=== PATIENT | male | born 2000 | race American Indian/Alaskan Native ===

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

== ENCOUNTER 2021-06-05 14:26 | Emergency (ER) | payer BC ==
--- NOTE | 2021-06-05 15:28 | Emergency Department Report ---
ED ENT HPI - General Stated complaint: SORE THROAT Time Seen by Provider: 06/05/21 15:24 Source: patient Mode of arrival: Ambulatory Limitations: No Limitations - History of Present Illness Initial comments: 21-year-old male presents to the ER today with complaints of sore throat. Patient states that his symptoms have been going on for 4 days. Patient states that he did get an outpatient COVID-19 test because he has been around a few family members who are positive for Covid. He states that the test was negative. His main symptom suggest a sore throat but denies any other symptoms. He reports no trismus or drooling, or difficulty breathing. Patient states that he is concerned that he may have strep as he had similar symptoms earlier this time. complaint: sore throat -: days(s) (4) - Related Data Previous Rx's Medication Instructions Recorded Last Taken Type oxyCODONE /ACETAMINOPHEN [Percocet 2 tab PO Q4HR PRN #20 tab 11/05/19 Unknown Rx 5/325] Amoxicillin [Trimox CAP] 500 mg PO Q12H #20 capsule 06/05/21 Unknown Rx dexAMETHasone [Decadron] 4 mg PO Q12H #10 tablet 06/05/21 Unknown Rx Allergies Allergy/AdvReac Type Severity Reaction Status Date / Time No Known Allergies Allergy Unverified 11/04/19 05:43 ED Dental HPI - General Stated complaint: SORE THROAT Time Seen by Provider: 06/05/21 15:24 - Related Data Previous Rx's Medication Instructions Recorded Last Taken Type oxyCODONE /ACETAMINOPHEN [Percocet 2 tab PO Q4HR PRN #20 tab 11/05/19 Unknown Rx 5/325] Amoxicillin [Trimox CAP] 500 mg PO Q12H #20 capsule 06/05/21 Unknown Rx dexAMETHasone [Decadron] 4 mg PO Q12H #10 tablet 06/05/21 Unknown Rx Allergies Allergy/AdvReac Type Severity Reaction Status Date / Time No Known Allergies Allergy Unverified 11/04/19 05:43 ED Review of Systems ROS: Stated complaint: SORE THROAT Other details as noted in HPI ED Past Medical Hx - Past Medical History Hx Hypertension: No Hx Congestive Heart Failure: No Hx Diabetes: No Hx Liver Disease: No Hx Renal Disease: No Hx Asthma: Yes (no medication at home) Hx COPD: No Hx HIV: No - Social History Smoking Status: Never Smoker - Medications Home Medications: Home Medications Medication Instructions Recorded Confirmed Last Taken Type oxyCODONE /ACETAMINOPHEN [Percocet 2 tab PO Q4HR PRN #20 tab 11/05/19 Unknown Rx 5/325] Amoxicillin [Trimox CAP] 500 mg PO Q12H #20 capsule 06/05/21 Unknown Rx dexAMETHasone [Decadron] 4 mg PO Q12H #10 tablet 06/05/21 Unknown Rx ED Course Vital Signs 06/05/21 15:24 Temperature 99.1 F Pulse Rate 70 Respiratory 18 Rate Blood Pressure 131/72 O2 Sat by Pulse 100 Oximetry Critical care attestation.: If time is entered above; I have spent that time in minutes in the direct care of this critically ill patient, excluding procedure time. ED Disposition Clinical Impression: Tonsillitis Disposition: HOME / SELF CARE / HOMELESS Is pt being admited?: No Does the pt Need Aspirin: No Condition: Stable Instructions: Tonsillitis, [id number] Additional Instructions: Recommend that you take the amoxicillin as prescribed. Take the Decadron and ibuprofen as prescribed to help with pain and any swelling. Follow-up with your PCP. Return to the ER if your symptoms worsens in any way. Prescriptions: dexAMETHasone [Decadron] 4 mg PO Q12H #10 tablet Amoxicillin [Trimox CAP] 500 mg PO Q12H #20 capsule Referrals: PRIMARY CARE, [Primary Care Provider] - 3-5 Days Forms: Work/School Release Form(ED) Time of Disposition: 16:04
[2021-06-05 16:40] VITALS: BP 143/80
== END 2021-06-05 16:45 | disposition home or self-care (01) ==
LOC: ED 14:26
DX: J03.90 Acute tonsillitis, unspecified (principal); J45.909 Unspecified asthma, uncomplicated
CPT/HCPCS: 87116; 87430; 99283

== ENCOUNTER 2021-06-09 06:08 | Emergency (ER) | payer BC ==
--- NOTE | 2021-06-09 09:28 | Emergency Department Report ---
ED Recheck HPI - General Chief Complaint: Sore Throat Stated Complaint: SORE THROAT Time Seen by Provider: 06/09/21 08:33 Source: patient Mode of arrival: Ambulatory Limitations: No Limitations - History of Present Illness Initial Comments: This is a 21-year-old male nontoxic, well nourished in appearance, no acute signs of distress presents to the ED for medication refill of Amox. Patient was /seen here on 06/05/21 and was DX with tonsillitis and was treatment with trimax. Patient stated he started to take this and yesterday his medication was lost. Patient patient otherwise denies any other symptoms or complaints. Stated taken 3 days worth of antibiotics. Currently patient stated sore throat has significantly improved. Patient denies any fever, chills, headache, stiff neck, nausea, vomiting, chest /pain, shortness of breath, numbness or tingling. Patient denies any drooling or hoarseness. Patient denies any allergies or significant past medical history. MD Complaint: medication refill request Returns Today for: request for prescription Symptoms Since Prior Visit: no new symptoms, improved Associated Symptoms: none. denies: fever, chills, chest pain, shortness of breath, rash, malaise, nasuea, abdominal pain - Related Data Previous Rx's Medication Instructions Recorded Last Taken Type oxyCODONE /ACETAMINOPHEN [Percocet 2 tab PO Q4HR PRN #20 tab 11/05/19 Unknown Rx 5/325] Amoxicillin [Trimox CAP] 500 mg PO Q12H #20 capsule 06/05/21 Unknown Rx dexAMETHasone [Decadron] 4 mg PO Q12H #10 tablet 06/05/21 Unknown Rx Amoxicillin [Trimox CAP] 500 mg PO Q12H #14 capsule 06/09/21 Unknown Rx Allergies Allergy/AdvReac Type Severity Reaction Status Date / Time No Known Allergies Allergy Unverified 11/04/19 05:43 ED Review of Systems ROS: Stated complaint: SORE THROAT Other details as noted in HPI Comment: All other systems reviewed and negative Constitutional: denies: chills, fever Eyes: denies: eye pain, eye discharge, vision change ENT: denies: ear pain, throat pain Respiratory: denies: cough, shortness of breath, wheezing Cardiovascular: denies: chest pain, palpitations Endocrine: no symptoms reported Gastrointestinal: denies: abdominal pain, nausea, diarrhea Genitourinary: denies: urgency, dysuria Musculoskeletal: denies: back pain, joint swelling, arthralgia Skin: denies: rash, lesions Neurological: denies: headache, weakness, paresthesias Psychiatric: denies: anxiety, depression Hematological/Lymphatic: denies: easy bleeding, easy bruising ED Past Medical Hx - Past Medical History Previous Medical History?: Yes Hx Hypertension: No Hx Congestive Heart Failure: No Hx Diabetes: No Hx Liver Disease: No Hx Renal Disease: No Hx Asthma: Yes (no medication at home) Hx COPD: No Hx HIV: No - Surgical History Past Surgical History?: No - Social History Smoking Status: Never Smoker - Medications Home Medications: Home Medications Medication Instructions Recorded Confirmed Last Taken Type oxyCODONE /ACETAMINOPHEN [Percocet 2 tab PO Q4HR PRN #20 tab 11/05/19 Unknown Rx 5/325] Amoxicillin [Trimox CAP] 500 mg PO Q12H #20 capsule 06/05/21 Unknown Rx dexAMETHasone [Decadron] 4 mg PO Q12H #10 tablet 06/05/21 Unknown Rx Amoxicillin [Trimox CAP] 500 mg PO Q12H #14 capsule 06/09/21 Unknown Rx ED Physical Exam - General Limitations: No Limitations General appearance: alert, in no apparent distress - Head Head exam: Present: atraumatic, normocephalic - Eye Eye exam: Present: normal appearance - ENT ENT exam: Present: normal exam, normal orophraynx - Neck Neck exam: Present: normal inspection, full ROM. Absent: tenderness, meningismus, lymphadenopathy - Respiratory Respiratory exam: Absent: respiratory distress - Cardiovascular Cardiovascular Exam: Present: regular rate - Extremities Exam Extremities exam: Present: full ROM - Back Exam Back exam: Present: full ROM - Neurological Exam Neurological exam: Present: alert, oriented X3, normal gait - Psychiatric Psychiatric exam: Present: normal affect, normal mood - Skin Skin exam: Present: warm, dry, intact, normal color. Absent: rash ED Course Vital Signs 06/09/21 06:09 Temperature 98.0 F Pulse Rate 85 Respiratory 16 Rate Blood Pressure 131/80 O2 Sat by Pulse 100 Oximetry - Reevaluation(s) Reevaluation #1: 06/09/21 09:42 Patient is speaking in full sentences with no signs of distress noted. ED Recheck MDM - Medical Decision Making This is a 21-year-old male who presents with medication refill. Patient is stable and was examined by me. Chart has been reviewed on 06/05/2021 any simply patient was prescribed amoxicillin every 12 #20. Due to patient stating that he took medication for 3 days, patient will be prescribed for 7 days only at this time. Otherwise physical exam is unremarkable. Vital signs are stable. Patient was instructed to follow-up with a primary care doctor in 3-5 days or if symptoms worsen and continue return to emergency room as soon as possible. At time of discharge, the patient does not seem toxic or ill in appearance. No acute signs of distress noted. Patient agrees to discharge treatment plan of care. No further questions noted by the patient. The patient was evaluated in the emergency department for symptoms described in the history of present illness. He/she was evaluated in the context of the global COVID-19 pandemic, which necessitated consideration that the patient might be at risk for infection with the virus that causes COVID-19. Institutional protocols and algorithms that pertain to the evaluation of dana ents at risk for COVID-19 are in a state of rapid change based on information released by regulatory bodies including the CDC and federal and state organizations. These policies and algorithms were followed during the patient's care in the emergency department. Please note that these policies, procedures and recommendations changed on a rapid basis. Critical care attestation.: If time is entered above; I have spent that time in minutes in the direct care of this critically ill patient, excluding procedure time. ED Disposition Clinical Impression: Medication refill Disposition: HOME / SELF CARE / HOMELESS Is pt being admited?: No Does the pt Need Aspirin: No Condition: Stable Additional Instructions: Follow-up with a primary care doctor in 3-5 days or if symptoms worsen and continue return to emergency room as soon as possible. Prescriptions: Amoxicillin [Trimox CAP] 500 mg PO Q12H #14 capsule Referrals: ANDRIA DOYLE MD [Primary Care Provider] - 3-5 Days ENRIQUE HERNANDEZ MD [Staff Physician] - 3-5 Days Time of Disposition: 09:56
[2021-06-09 10:24] VITALS: BP 182/88
== END 2021-06-09 10:24 | disposition home or self-care (01) ==
LOC: ED 06:08
DX: Z76.0 Encounter for issue of repeat prescription (principal); J45.909 Unspecified asthma, uncomplicated
CPT/HCPCS: 99282